=== PATIENT | male | born 1965 | race Caucasian/White ===

== ENCOUNTER → 2018-11-14 | Outpatient (CLI) | payer MEDICARE, OTHER ==
--- NOTE | 2018-11-14 21:48 | REP ---
Clinical: Spondylosis. Technique: AP, lateral, flexion/extension, open-mouth, bilateral oblique and swimmer's views of the cervical spine. Findings: Mild osteopenia is appreciated along with degenerative disc disease at C5-6 and C6-7 including endplate sclerosis/heterogeneity with disc space narrowing. Neural foramen appear patent. C1-C2 articulation and odontoid process are intact. Impression: Mild osteopenia and mild degenerative changes at C5-6 and C6-7. Electronically Signed by Romel Haq MD 11/14/2018 09:40 P
== END ==
LOC: M RAD 13:06
PROVIDERS: ATTEND Internal Medicine
DX: K40.90 Unilateral inguinal hernia, without obstruction or gangrene, not specified as recurrent (principal)